=== PATIENT | female | born 1975 | race Caucasian/White ===

== ENCOUNTER → 2017-01-09 | Outpatient (CLI) | payer OTHER ==
[~2017-01-09] MED LIST: GADOBUTROL 7.5 MMOL/7.5 ML VIAL INT ART ONE; IOHEXOL 300 MG/ML 50 ML VIAL. INT ART ONE; LIDOCAINE 1% Multi-Dose 20 ML VIAL. ID ONE
--- NOTE | 2017-01-09 15:11 | KCIC ---
PROCEDURE: Right shoulder injection using fluoroscopic guidance, prior to MR. HISTORY: Shoulder pain. Pain and numbness for one year. TECHNIQUE: The procedure was explained to the patient as were potential risks, including among others infection, bleeding or allergic reaction. All questions were answered. Informed written and verbal consent was obtained. The shoulder was prepped and draped in the usual sterile manner. Following administration of local anesthetic, a 22-gauge needle was advanced into the anterior shoulder. Following negative aspiration, 12 cc of a solution of 5cc Omnipaque-300 contrast, 5 cc 1% lidocaine, 10 cc normal saline, and 0.1 cc gadolinium was injected without difficulty. The needle was removed. There was good hemostasis at the injection site. The patient left in stable condition without immediate complication. The patient was given postprocedural instructions, and instructed to contact us or the ER if there are any complications. A single spot image is obtained. FLUOROSCOPY TIME:?21 seconds Electronically signed by: Mikael Bautista MD (01/09/2017 3:08 PM) [id number]
--- NOTE | 2017-01-09 15:11 | KCIC ---
MR arthrogram of the right shoulder Indication: Right shoulder pain. Numbness up and down the arm for one year. Technique: Intra-articular contrast injected into the glenohumeral joint and is reported separately. Routine 4 plane sequences were obtained, including ABER positioning. Findings: Mild motion degradation. Acromioclavicular joint:Intact. Rotator cuff: No evidence of rotator cuff tear. No significant fluid or contrast accumulation in the subacromial subdeltoid bursa. Subdeltoid bursa:No significant fluid or contrast accumulation. Articular cartilage: No acute cartilage defect or advanced DJD. Labrum:No evidence of labral tear or para labral cyst Biceps tendon: Intact Bones: No lesion or acute fracture. Soft tissue: No acute findings. Impression: No acute abnormality or internal derangement. Electronically signed by: Mikael Bautista MD (01/09/2017 3:07 PM) [id number]
== END | disposition home or self-care (01) ==
LOC: KCIC 12:45
PROVIDERS: ATTEND Family Medicine
DX: M54.2 Cervicalgia (principal); M25.511 Pain in right shoulder
CPT/HCPCS: 73040; 73222; A9585; Q9967